=== PATIENT | female | born 1940 | race Caucasian/White ===

== ENCOUNTER → 2017-04-14 20:34 | Emergency (ER) | payer MEDICARE, OTHER ==
[~2017-04-14 20:34] MED LIST: ASAB PO; BYETTA SC; CALTRA600D PO; CO-Q10 PO; COQ-10200 MG PO; FISH-EPA1000 MG PO; FLECAINIDE100 MG PO; MAGNEBIND PO; MULTIPLE VIT PO; NEXIUM40 PO; NIACIN 500 PO; PREM625 PO; SYN1 PO; SYN112 PO; SYN88 PO; TAMBO50 PO; TAMBOCOR PO; VYTORIN 10/20 T1 TAB PO; ZANTAC 150 PO
== END | disposition home or self-care (01) ==
LOC: ER 20:34
PROC: 0HQGXZZ Repair Left Hand Skin, External Approach (ICD-10-PCS; principal; 2017-04-14)
DX: S61.211A Laceration without foreign body of left index finger without damage to nail, initial encounter (principal); Z90.710 Acquired absence of both cervix and uterus; Z90.49 Acquired absence of other specified parts of digestive tract; Z79.82 Long term (current) use of aspirin; Z79.899 Other long term (current) drug therapy; W45.8XXA Other foreign body or object entering through skin, initial encounter
CPT/HCPCS: 73140-LT; 90471; 90714; 99283